=== PATIENT | male | born 1975 | race Caucasian/White ===

== ENCOUNTER 2017-08-05 16:43 | Emergency (ER) | payer MEDICAID ==
[2017-08-05 20:30] VITALS: BP 122/71
--- NOTE | 2017-08-05 21:14 | UC ---
FLU HPI - HPI Summary HPI Summary: 1 WEEK OF CHILLS, FATIGUE, MYALGIAS, BRYSON, INTERMITTENT NAUSEA, COUGH AND CONGESTION. HAD FEVER AT [facility] 101.1 BUT THERMOMETER BROKE 4 DAYS AGO SO HAS NOT CHECKED SINCE THEN. STILL FEELS UNWELL. DENIES SOB. NO FLU SHOT THIS SEASON. - History of Current Complaint Chief Complaint: UCGeneralIllness Stated Complaint: COUGH, ACHES Time Seen by Provider: 08/05/17 21:07 Hx Obtained From: Patient Onset/Duration: Gradual Onset, Lasting Days, Still Present Severity Currently: Moderate Severity Initially: Moderate Pain Intensity: 6 Pain Scale Used: 0-10 Numeric Associated Signs & Symptoms: Positive: Fever, Myalgia, Cough, Sore Throat, Nasal Congestion, Headache - Allergy/Home Medications Allergies/Adverse Reactions: Allergies Allergy/AdvReac Type Severity Reaction Status Date / Time No Known Allergies Allergy Verified 08/05/17 20:20 Home Medications: Home Medications Aspirin/Acetaminophen/Caffeine [Excedrin Migraine Caplet] 1 each PO DAILY PRN [History Confirmed 08/05/17] Ibuprofen/Pseudoephedrine HCl [Advil Cold & Sinus Caplet] 1 tab PO DAILY PRN [History Confirmed 08/05/17] PMH/Surg Hx/FS Hx/Imm Hx Neurological History: Migraine - Surgical History Surgical History: None - Family History Known Family History: Positive: Other - no skeletal disorders Negative: Hypertension - Social History Alcohol Use: None Substance Use Type: None Smoking Status (MU): Heavy Every Day Tobacco Smoker Type: Cigarettes Amount Used/How Often: 1/2 pack daily Length of Time of Smoking/Using Tobacco: 23 Years (quit for four years) Have You Smoked in the Last Year: Yes Household Exposure Type: Cigarettes - Immunization History Most Recent Influenza Vaccination: Fall 2014 Review of Systems Constitutional: Fever, Chills, Fatigue ENT: Sore Throat, Nasal Discharge Respiratory: Cough Cardiovascular: Negative Gastrointestinal: Nausea Musculoskeletal: Myalgia Neurological: Headache All Other Systems Reviewed And Are Negative: Yes Physical Exam Triage Information Reviewed: Yes Appearance: No Pain Distress, Well-Nourished, Ill-Appearing - MILD Vital Signs: Initial Vital Signs Temp 98.1 F 08/05/17 20:23 Pulse 71 08/05/17 20:23 Resp 16 08/05/17 20:23 BP 122/71 08/05/17 20:23 Pulse Ox 100 08/05/17 20:23 Vital Signs Reviewed: Yes Eyes: Positive: Conjunctiva Clear ENT: Positive: Hearing grossly normal, Pharynx normal, TMs normal - PARTIALLY OCCLUDED BY CERUMEN Neck: Positive: Supple, Nontender, No Lymphadenopathy Respiratory Exam: Normal Cardiovascular Exam: Normal Abdomen Description: Positive: Soft Musculoskeletal: Positive: No Edema Neurological: Positive: Alert Psychological: Positive: Age Appropriate Behavior Skin: Negative: rashes Diagnostics - Laboratory Diagnostic Studies Completed/Ordered: FLU NEG Flu Course/Dx - Course Course Of Treatment: DISCUSSED OBTAINING CXR GIVEN PT WITH PERSISTENT SX OF COUGH, SUBJECTIVE FEVER AND MALAISE. PT DECLINES DUE TO TIME CONSTRAINTS. STATES HE WILL F/U WITH PCP AND GET CXR AT LATER TIME IF INDICATED. - Differential Dx/Diagnosis Provider Diagnoses: ACUTE BRONCHITIS Discharge - Discharge Plan Condition: Stable Disposition: HOME Prescriptions: Albuterol HFA INHALER* [Ventolin HFA Inhaler*] 2 puff INH Q4H PRN #1 mdi PRN Reason: Shortness Of Breath Azithromycin 500 mg PO DAILY #4 tab Benzonatate CAP* [Tessalon CAP*] 1 - 2 cap PO TID PRN #30 cap PRN Reason: Cough predniSONE TAB* [Deltasone TAB*] 40 mg PO DAILY #10 tab Patient Education Materials: Acute Bronchitis (ED) Forms: *Work Release Referrals: No Primary Care Phys,NOPCP [Primary Care Provider] - Additional Instructions: FLU SWAB NEGATIVE. YOUR SYMPTOMS MAY BE VIRALLY MEDIATED BUT GIVEN THE LENGTH OF TIME YOU HAVE BEEN ILL WE WILL COVER YOU WITH ANTIBIOTICS. IF YOU START THE MEDICINE BE SURE TO TAKE IT FOR THE FULL COURSE. REST, HYDRATE, OTC MEDS NEEDED. WILL ALSO TREAT WITH PREDNISONE TO HELP WITH AIRWAY INFLAMMATION AND COUGH MEDICINE. ALBUTEROL REFILLED. SEEK FOLLOW-UP HERE OR WITH YOUR PCP IF YOU ARE NOT IMPROVING OVER THE NEXT 1-2 WEEKS. CALL THE NUMBER BELOW FOR ASSISTANCE IN ESTABLISHING WITH A PCP An additional resource available to assist in finding the appropriate physician for your health care needs is [facility] ([facility]). You may contact them by calling [phone].
[2017-08-05] MEDS ORDERED: Azithromycin TAB* 250 MG PO ONE (21:51)
== END 2017-08-05 22:05 | disposition home or self-care (01) ==
LOC: UCCORT 16:43
DX: J20.9 Acute bronchitis, unspecified (principal); F17.210 Nicotine dependence, cigarettes, uncomplicated
CPT/HCPCS: 87502; 99212; A9270-GY; G0463

== ENCOUNTER 2018-04-19 08:09 | Emergency (ER) | payer OTHER ==
[2018-04-19 08:35] VITALS: BP 123/77
[2018-04-19] MEDS ORDERED: Ketorolac INJ* 60 MG/2 ML VIAL IM ONE (08:46)
--- NOTE | 2018-04-19 09:00 | ED ---
Back Pain - HPI Summary HPI Summary: 42 yo WM p/w sudden lumbar back pain after lifting a tire to a car at work. Denies fall, trauma but pain is 9-10/10 and disabling associated with radiation to B/L legs, w/o numbness or tingling. - History of Current Complaint Chief Complaint: UCBackPain Stated Complaint: LOWER BACK PAIN Time Seen by Provider: 04/19/18 08:45 Hx Obtained From: Patient Onset/Duration: Sudden Onset, Lasting Days, Still Present Onset/Duration: Started Hours Ago Timing: Constant Severity Initially: Severe Severity Currently: Moderate Pain Intensity: 7 - Allergies/Home Medications Allergies/Adverse Reactions: Allergies Allergy/AdvReac Type Severity Reaction Status Date / Time No Known Allergies Allergy Verified 04/19/18 08:31 PMH/Surg Hx/FS Hx/Imm Hx Respiratory History: Reports: Hx Asthma Infectious Disease History: No Infectious Disease History: Denies: Traveled Outside the [place] in Last 30 Days - Family History Known Family History: Positive: Other - no skeletal disorders Negative: Hypertension - Social History Alcohol Use: None Substance Use Type: Reports: None Smoking Status (MU): Heavy Every Day Tobacco Smoker Type: Cigarettes Amount Used/How Often: 1/2 pack daily Length of Time of Smoking/Using Tobacco: 23 Years (quit for four years) Have You Smoked in the Last Year: Yes Review of Systems Constitutional: Negative Eyes: Negative ENT: Negative Cardiovascular: Negative Respiratory: Negative Gastrointestinal: Negative Positive: Myalgia, Other - LBP Skin: Negative Positive: Paresthesia Psychological: Normal All Other Systems Reviewed And Are Negative: Yes Physical Exam - Summary Physical Exam Summary: Vital Signs Reviewed: Yes Appearance: Positive: Well-Appearing Skin: Positive: Warm Head/Face: Positive: Normal Head/Face Inspection Eyes: Positive: Normal, EOMI, GAIL ENT: Positive: Normal ENT inspection Neck: Positive: Supple Respiratory/Lung Sounds: Positive: Clear to Auscultation Cardiovascular: Positive: Normal, RRR, S1, S2 Abdomen Description: Positive: Nontender, Soft Musculoskeletal: Positive: lumbar L2-3 paraspinal tenderness, ROM restricted 2ndary to pain Neurological: Positive: CN Intact II-XII Psychiatric: Positive: Normal Vital Signs On Initial Exam: Initial Vitals Temp Pulse Resp BP Pulse Ox 36.7 C 71 15 123/77 100 04/19/18 08:27 04/19/18 08:27 04/19/18 08:27 04/19/18 08:27 04/19/18 08:27 Vital Signs Reviewed: Yes Diagnostics - Vital Signs Vital Signs Temp Pulse Resp BP Pulse Ox 04/19/18 08:27 36.7 C 71 15 123/77 100 - Laboratory Lab Statement: Any lab studies that have been ordered have been reviewed, and results considered in the medical decision making process. Back Pain Course/Dx - Course Course Of Treatment: Torasol 60mg In x 1 dose administered with mild improvement - Diagnoses Provider Diagnoses: Acute bilateral low back pain with bilateral sciatica, Spasm Discharge - Sign-Out/Discharge Documenting (check all that apply): Patient Departure All imaging exams completed and their final reports reviewed: Yes - Discharge Plan Condition: Stable Disposition: HOME Prescriptions: Cyclobenzaprine TAB* [Flexeril 10 MG TAB*] 10 mg PO BID PRN 5 Days #10 tab PRN Reason: Pain Naproxen [Naproxen 500 mg tab] 500 mg PO BID 10 Days #20 tablet. Patient Education Materials: Muscle Spasm (ED), Low Back Strain (ED) Forms: *Work Release Additional Instructions: as tolerated - Billing Disposition and Condition Condition: STABLE Disposition: Home
== END 2018-04-19 09:19 | disposition home or self-care (01) ==
LOC: UCCORT 08:09
DX: M54.42 Lumbago with sciatica, left side (principal); M54.41 Lumbago with sciatica, right side; M62.830 Muscle spasm of back; Z87.891 Personal history of nicotine dependence
CPT/HCPCS: 96372; 99212; G0463; J1885

== ENCOUNTER 2018-04-27 14:15 | Emergency (ER) | payer OTHER ==
[2018-04-27 14:26] VITALS: BP 139/86
--- NOTE | 2018-04-27 14:46 | UC ---
Back Pain HPI - HPI Summary HPI Summary: 42 year old male presents with persistent low back pain. Was initially seen at this facility on 04/19/2018 with onset of low back pain after lifting a tire at work. States he has been taking naproxen and cyclobenzabrine as prescribed with some improvement in symptoms. Reports constant low back pain that occasionally shoots down both legs to his knee. Radiating pain most often occurs on the right side however occasionally occurs on the left. Pain worse with sitting, bending, and walking. Improves with lying on his left side, warm moist heat, and gentle massage. States he has been unable to return to work d/t the pain. Denies fever, chills, abdominal pain, nausea, vomiting, weakness, numbness, tingling in extremities, or loss of bowel or bladder control. - History of Current Complaint Chief Complaint: UCBackPain Stated Complaint: LOWER BACK PAIN Time Seen by Provider: 04/27/18 14:22 Hx Obtained From: Patient Onset/Duration: Sudden Onset, Lasting Days Timing: Constant Severity Initially: Moderate Severity Currently: Moderate Pain Intensity: 6 Back Pain: Radiates To - bilateral legs Character: Sharp, Spasmodic Aggravating Factor(s): Movement, Bending, Walking Alleviating Factor(s): Rest, Position, Heat Associated Signs And Symptoms: Negative: Fever, Weakness, Numbness, Tingling, Abdominal Pain, Flank Pain, Bladder Incontinence, Bowel Incontinence - Allergies/Home Medications Allergies/Adverse Reactions: Allergies Allergy/AdvReac Type Severity Reaction Status Date / Time No Known Allergies Allergy Verified 04/19/18 08:31 PMH/Surg Hx/FS Hx/Imm Hx Respiratory History: Asthma - Surgical History Surgical History: None - Family History Family History: Noncontributory - Social History Occupation: Employed Full-time Lives: With Family Alcohol Use: None Substance Use Type: None Smoking Status (MU): Heavy Every Day Tobacco Smoker Type: Cigarettes Amount Used/How Often: 1/2 pack daily Length of Time of Smoking/Using Tobacco: 23 Years (quit for four years) Have You Smoked in the Last Year: Yes Household Exposure Type: Cigarettes - Immunization History Most Recent Influenza Vaccination: Fall 2014 Review of Systems All Other Systems Reviewed And Are Negative: Yes Constitutional: Positive: Negative Skin: Positive: Negative Gastrointestinal: Positive: Negative Genitourinary: Positive: Negative Motor: Positive: Negative Neurovascular: Positive: Negative Musculoskeletal: Positive: Other: - See HPI Is Patient Immunocompromised?: No Physical Exam Triage Information Reviewed: Yes Appearance: No Pain Distress, Well-Nourished Vital Signs: Initial Vital Signs Temp 98.2 F 04/27/18 14:22 Pulse 74 04/27/18 14:22 Resp 16 04/27/18 14:22 BP 139/86 04/27/18 14:22 Pulse Ox 98 04/27/18 14:22 Neck: Positive: Supple, Nontender Respiratory: Positive: Lungs clear, Normal breath sounds, No respiratory distress Cardiovascular: Positive: RRR, No Murmur, Pulses Normal, Brisk Capillary Refill Abdomen Description: Positive: Nontender, No Organomegaly, Soft. Negative: CVA Tenderness (R), CVA Tenderness (L), Distended, Guarding Bowel Sounds: Positive: Present Musculoskeletal: Positive: Strength Intact, Other: - Mild soft tissue tenderness to bilateral lumbar back without spasm. No midline spinal tenderness or deformities noted. Neurological: Positive: Alert, Muscle Tone Normal, Other: - Sensation intact distally Skin Exam: Normal Back Pain Course/Dx - Course Course Of Treatment: 42 year old male with persistent low back pain after lifting a tire at work 04/19/2018. He was initially evalauted at this facility and recommended conservative treatment for low back strain. He states pain has improved however has not been able to work as pain has persisted. Afebrile. Neuro intact. Exam revealed bilateral soft tissue tenderness. Recommend continued conservative treatment NSAIDs, muscle relaxant, heat, and low back exercises. A prescription for PT evaluation and treatment was provided. He is to follow up with occupational medicine within 7 days for re-evaluation. Warning symptoms reviewed. Verbalizes understanding and agrees with POC. - Differential Dx/Diagnosis Differential Diagnosis/HQI/PQRI: Arthritis, Herniated Disc, Strain Provider Diagnoses: low back strain, elevated blood pressure reading Discharge - Sign-Out/Discharge Documenting (check all that apply): Patient Departure All imaging exams completed and their final reports reviewed: No Studies - Discharge Plan Condition: Stable Disposition: HOME Prescriptions: Cyclobenzaprine HCl 10 mg PO Q8HR PRN #15 tablet PRN Reason: Spasms Naproxen [Naproxen 500 mg tab] 500 mg PO Q12HR #30 tablet Patient Education Materials: Low Back Strain (ED), Lower Back Exercises (ED) Forms: *Work Release Referrals: No Primary Care Phys,NOPCP [Primary Care Provider] - Matt Felix MD [Medical Doctor] - 7 Days (Call for appointment.) Additional Instructions: Continue taking the naproxen 1 tab every 12 hours with food. Use cyclobenzaprine 1 tab every 8 hours as needed for severe pain or spasm. Use warm, moist heat to the affected area 3-4 times a day. I have provided you with a referral to physical therapy for evaluation and treatment. Follow up with Dr. Felix, occupational medicine, within 7 days for re- evaluation. Call for an appointment. Your blood pressure was slightly elevated in the clinic today. It is recommended that you follow up with a primary care provider to have this rechecked. Seek immediate medical attention in the emergency room if you develop fever greater than 100.5 F, have weakness, numbness, or tingling in the legs, you lose control of your bowel or bladder, or have any worsening of symptoms. - Billing Disposition and Condition Condition: STABLE Disposition: Home
== END 2018-04-27 15:09 | disposition home or self-care (01) ==
LOC: UCCORT 14:15
DX: Z51.89 Encounter for other specified aftercare (principal); S39.012D Strain of muscle, fascia and tendon of lower back, subsequent encounter; X50.0XXD Overexertion from strenuous movement or load, subsequent encounter; R03.0 Elevated blood-pressure reading, without diagnosis of hypertension; F17.210 Nicotine dependence, cigarettes, uncomplicated
CPT/HCPCS: 99212; G0463

== ENCOUNTER 2019-04-27 18:13 | Emergency (ER) | payer MEDICAID, OTHER ==
[2019-04-27 18:24] VITALS: BP 134/83
[2019-04-27] MEDS ORDERED: Albuterol HFA INHALER* 8 gm MDI INH ONE (18:52)
--- NOTE | 2019-04-27 18:58 | UC ---
Respiratory Complaint HPI - HPI Summary HPI Summary: 43 yo male got ill 4-5 days ago fever/chills/congestion/cough and wheezing no fever/chills hx asthma and has used his rescue inhaler fells much better now and desires not to return to work - History of Current Complaint Chief Complaint: UCRespiratory Stated Complaint: FLU SYMPTOMS Time Seen by Provider: 04/27/19 18:48 Hx Obtained From: Patient Onset/Duration: Gradual Onset Timing: Constant Severity Initially: Moderate Severity Currently: Mild Pain Intensity: 0 Pain Scale Used: 0-10 Numeric Character: Cough: Nonproductive Aggravating Factors: Nothing Associated Signs And Symptoms: Positive: Fever - now resolved, Chills - now resolved, Wheezing, Nasal Congestion - now resolved - Allergies/Home Medications Allergies/Adverse Reactions: Allergies Allergy/AdvReac Type Severity Reaction Status Date / Time No Known Allergies Allergy Verified 04/27/19 18:21 PMH/Surg Hx/FS Hx/Imm Hx Previously Healthy: Yes Respiratory History: Asthma, Bronchitis - Surgical History Surgical History: None - Family History Known Family History: Positive: Other - no skeletal disorders Negative: Hypertension Family History: Noncontributory - Social History Alcohol Use: Rare Substance Use Type: None Smoking Status (MU): Heavy Every Day Tobacco Smoker Type: Cigarettes Amount Used/How Often: 1/2 pack daily Length of Time of Smoking/Using Tobacco: 23 Years (quit for four years) Have You Smoked in the Last Year: Yes Household Exposure Type: Cigarettes - Immunization History Most Recent Influenza Vaccination: Fall 2014 Review of Systems All Other Systems Reviewed And Are Negative: Yes Constitutional: Positive: Fever - resolved >24 hours, Chills - resolved >24 hours, Fatigue Skin: Positive: Negative Eyes: Positive: Negative ENT: Positive: Negative Respiratory: Positive: Cough, Other - wheezing has decreased Cardiovascular: Positive: Negative Gastrointestinal: Positive: Negative Genitourinary: Positive: Negative Motor: Positive: Negative Neurovascular: Positive: Negative Musculoskeletal: Positive: Negative Neurological: Positive: Negative Psychological: Positive: Negative Physical Exam Triage Information Reviewed: Yes Appearance: Well-Appearing, No Pain Distress, Well-Nourished Vital Signs: Initial Vital Signs Temp 97.9 F 04/27/19 18:22 Pulse 80 04/27/19 18:22 Resp 18 04/27/19 18:22 BP 134/83 11/10/19 18:22 Pulse Ox 99 04/27/19 18:22 Vital Signs Reviewed: Yes Eyes: Positive: Conjunctiva Clear ENT: Positive: Nasal congestion, Uvula midline. Negative: Hearing grossly normal, Pharyngeal erythema, Nasal drainage, Muffled voice, Hoarse voice Neck: Positive: Supple, Nontender, No Lymphadenopathy Respiratory: Positive: No respiratory distress, No accessory muscle use, Wheezing Cardiovascular: Positive: RRR, No Murmur Musculoskeletal: Positive: ROM Intact, No Edema Neurological: Positive: Alert Psychological Exam: Normal Skin Exam: Normal Respiratory Course/Dx - Differential Dx/Diagnosis Provider Diagnosis: Influenza-like illness, Elevated BP without diagnosis of hypertension Discharge ED - Sign-Out/Discharge Documenting (check all that apply): Patient Departure All imaging exams completed and their final reports reviewed: No Studies - Discharge Plan Condition: Stable Disposition: HOME Patient Education Materials: How to Use a Metered-Dose Inhaler (ED) Forms: *Work Release Referrals: [facility] [Outside] - If Needed Additional Instructions: use inhaler as directed recheck for new or worsening symptoms or if not completely better in 4-5 days BP is in pre-hypertensive range and should be followed up in 1-4 mos - Billing Disposition and Condition Condition: STABLE Disposition: Home
== END 2019-04-27 19:09 | disposition home or self-care (01) ==
LOC: UCCORT 18:13
DX: R50.9 Fever, unspecified (principal); R05 Cough; R09.89 Other specified symptoms and signs involving the circulatory and respiratory systems; R03.0 Elevated blood-pressure reading, without diagnosis of hypertension; R53.83 Other fatigue; J45.909 Unspecified asthma, uncomplicated; F17.210 Nicotine dependence, cigarettes, uncomplicated
CPT/HCPCS: 99212; A9270-GY; G0463

== ENCOUNTER 2019-07-23 07:56 | Emergency (ER) | payer MEDICAID, OTHER ==
[2019-07-23 08:10] VITALS: BP 130/82
--- NOTE | 2019-07-23 08:42 | UC ---
Back Pain HPI - HPI Summary HPI Summary: right lower back pain x 2 days pain is severe , 9 out 10 , constant pain is radiating to his right leg, better by lying on his stomach , worse with any movement. + numbness of his right lower ext. no urinary sx, hx of chronic back pain , injury to his lower back 2 years ago been having pain off and on since - History of Current Complaint Chief Complaint: UCBackPain Stated Complaint: LOWERBACK/RTLEG Time Seen by Provider: 07/23/19 08:06 Hx Obtained From: Patient Onset/Duration: Gradual Onset, Lasting Days - 2, Still Present Timing: Constant Severity Initially: Severe Severity Currently: Severe Pain Intensity: 9 Back Pain: Is Discrete @ - right lower back Character: Spasmodic Aggravating Factor(s): Movement, Lifting, Bending, Walking, Cough Alleviating Factor(s): Rest, Position Associated Signs And Symptoms: Positive: Weakness - right lower leg, Numbness - right lower leg, Tingling - right lower leg. Negative: Swelling, Redness, Bruising, Fever, Abdominal Pain, Flank Pain, Bladder Incontinence, Bowel Incontinence, Weight Loss, Pain with Weight Bearing - Allergies/Home Medications Allergies/Adverse Reactions: Allergies Allergy/AdvReac Type Severity Reaction Status Date / Time No Known Allergies Allergy Verified 07/23/19 08:07 PMH/Surg Hx/FS Hx/Imm Hx - Additional Past Medical History Additional PMH: chronic back pain Respiratory History: Asthma - Surgical History Surgical History: None - Family History Known Family History: Positive: Other - no skeletal disorders Negative: Hypertension Family History: Noncontributory - Social History Alcohol Use: Rare Substance Use Type: None Smoking Status (MU): Heavy Every Day Tobacco Smoker Type: Cigarettes Amount Used/How Often: 1/2 pack daily Length of Time of Smoking/Using Tobacco: 23 Years (quit for four years) Have You Smoked in the Last Year: Yes Household Exposure Type: Cigarettes - Immunization History Most Recent Influenza Vaccination: Fall 2014 Review of Systems All Other Systems Reviewed And Are Negative: Yes Constitutional: Positive: Negative Skin: Positive: Negative Eyes: Positive: Negative ENT: Positive: Negative Is Patient Immunocompromised?: No Physical Exam Triage Information Reviewed: Yes Appearance: Well-Nourished, Pain Distress Vital Signs: Initial Vital Signs Temp 97.7 F 07/23/19 08:04 Pulse 61 07/23/19 08:04 Resp 17 07/23/19 08:04 BP 130/82 07/23/19 08:04 Pulse Ox 100 07/23/19 08:04 Vital Signs Reviewed: Yes Eye Exam: Normal Eyes: Positive: Conjunctiva Clear ENT: Positive: Normal ENT inspection, Hearing grossly normal, Pharynx normal Neck: Positive: Supple, Nontender, No Lymphadenopathy Respiratory: Positive: Chest non-tender, Lungs clear, Normal breath sounds Cardiovascular: Positive: RRR, No Murmur, Pulses Normal Abdomen Description: Positive: Nontender, Soft. Negative: CVA Tenderness (R), CVA Tenderness (L), Distended, Guarding Bowel Sounds: Positive: Present Musculoskeletal: Positive: Strength Limited @, ROM Limited @, Other: - lower back : + diffuse tenderness of right lower back , limited ROM on flexion and extension . limited Strength of right lower leg due to pain , normal lower ext. DTR Diagnostics - Radiology No standard instances Radiology Interpretation Completed By: Radiologist Summary of Radiographic Findings: LS spine xray report : IMPRESSION: Mild degenerative disc disease at L4-L5 and L5-S1. Back Pain Course/Dx - Differential Dx/Diagnosis Provider Diagnosis: Pain of back and right lower extremity Discharge ED - Sign-Out/Discharge Documenting (check all that apply): Patient Departure All imaging exams completed and their final reports reviewed: Yes - Discharge Plan Condition: Stable Disposition: HOME Prescriptions: Cyclobenzaprine TAB* [Flexeril 10 MG TAB*] 10 mg PO BID PRN #20 tab PRN Reason: Pain - Moderate Naproxen [Naproxen 500 mg tab] 500 mg PO BID #20 tablet predniSONE 20 mg TAB [Deltasone 20 MG TAB*] 40 mg PO DAILY #10 tab Patient Education Materials: Sciatica (ED), Acute Low Back Pain (ED) Referrals: [facility] [Outside] - 7 Days No Primary Care Phys,NOPCP [Primary Care Provider] - 7 Days - Billing Disposition and Condition Condition: STABLE Disposition: Home
== END 2019-07-23 09:21 | disposition home or self-care (01) ==
LOC: UCCORT 07:56
DX: M54.5 Low back pain (principal); M79.604 Pain in right leg; F17.210 Nicotine dependence, cigarettes, uncomplicated; J45.909 Unspecified asthma, uncomplicated; M51.36 Other intervertebral disc degeneration, lumbar region; M51.37 Other intervertebral disc degeneration, lumbosacral region
CPT/HCPCS: 72110; 99212; G0463

== ENCOUNTER 2019-08-28 13:12 | Emergency (ER) | payer OTHER ==
[2019-08-28 14:24] VITALS: BP 129/82
[2019-08-28] MEDS ORDERED: Ketorolac INJ* 30 MG/ML 1 ML VIAL IM ONE (16:10)
--- NOTE | 2019-08-28 16:11 | UC ---
Back Pain HPI - HPI Summary HPI Summary: 43 yo male with waxing and waning right sciatica since work related injury 17 mos ago has not seen Dr. Felix for a long time has been our of work since 08/17 with severe right sciatica no bowel or bladder dysfunction - History of Current Complaint Chief Complaint: UCBackPain Stated Complaint: LOW BACK/RT LEG PAIN Time Seen by Provider: 08/28/19 15:56 Hx Obtained From: Patient Onset/Duration: Sudden Onset, Worse Since - 08/17 Timing: Constant Severity Initially: Severe Severity Currently: Severe Pain Intensity: 8 Pain Scale Used: 0-10 Numeric Back Pain: Is Discrete @, Radiates To - right lateral leg to lat foot Character: Burning Aggravating Factor(s): Movement, Lifting, Bending Alleviating Factor(s): Other - medications Related History: Occupational Injury Full Body (No Head): 1 - pain 2 - radiation - Allergies/Home Medications Allergies/Adverse Reactions: Allergies Allergy/AdvReac Type Severity Reaction Status Date / Time No Known Allergies Allergy Verified 08/28/19 14:24 Home Medications: Home Medications Cyclobenzaprine TAB* [Flexeril TAB*] 10 mg PO TID PRN #21 tab 08/28/19 [Rx] Naproxen [Naproxen 500 mg tab] 500 mg PO BID PRN #20 tablet 08/28/19 [Rx] methylPREDNISolone [Medrol] 4 mg PO DAILY #1 tab.ds.pk 08/28/19 [Rx] PMH/Surg Hx/FS Hx/Imm Hx Previously Healthy: Yes Respiratory History: Asthma - Surgical History Surgical History: None - Family History Known Family History: Positive: Other - no skeletal disorders Negative: Hypertension Family History: Noncontributory - Social History Alcohol Use: Rare Substance Use Type: None Smoking Status (MU): Heavy Every Day Tobacco Smoker Type: Cigarettes Amount Used/How Often: 1/2 pack daily Length of Time of Smoking/Using Tobacco: 23 Years (quit for four years) Have You Smoked in the Last Year: Yes Household Exposure Type: Cigarettes - Immunization History Most Recent Influenza Vaccination: Fall 2014 Review of Systems All Other Systems Reviewed And Are Negative: Yes Constitutional: Positive: Negative Skin: Positive: Negative Eyes: Positive: Negative ENT: Positive: Negative Respiratory: Positive: Negative Cardiovascular: Positive: Negative Gastrointestinal: Positive: Negative Genitourinary: Positive: Negative Motor: Positive: Negative Neurovascular: Positive: Negative Musculoskeletal: Positive: Other: - see HPI Neurological/Mental Status: Positive: Negative Psychological: Positive: Negative Physical Exam Triage Information Reviewed: Yes Appearance: Well-Appearing, No Pain Distress, Well-Nourished Vital Signs: Initial Vital Signs Temp 99.2 F 08/28/19 14:14 Pulse 59 08/28/19 14:14 Resp 18 08/28/19 14:14 BP 129/82 08/28/19 14:14 Pulse Ox 100 08/28/19 14:14 Vital Signs Reviewed: Yes Eyes: Positive: Conjunctiva Clear ENT: Positive: Hearing grossly normal, Uvula midline. Negative: Nasal congestion, Nasal drainage, Tonsillar swelling, Tonsillar exudate, Trismus, Muffled voice, Hoarse voice Dental Exam: Normal Neck: Positive: Supple, Nontender, No Lymphadenopathy Respiratory: Positive: Lungs clear, Normal breath sounds, No respiratory distress, No accessory muscle use Cardiovascular: Positive: RRR, No Murmur Musculoskeletal: Positive: No Edema Neurological: Positive: Alert Psychological Exam: Normal Skin Exam: Normal - Additional Comments back- limited ROM slow wide based gait + right SLR ++ knee jerk + ankle jerk Back Pain Course/Dx - Differential Dx/Diagnosis Provider Diagnosis: Right sided sciatica Discharge ED - Sign-Out/Discharge Documenting (check all that apply): Patient Departure All imaging exams completed and their final reports reviewed: No Studies - Discharge Plan Condition: Stable Disposition: HOME Prescriptions: Cyclobenzaprine TAB* [Flexeril TAB*] 10 mg PO TID PRN #21 tab PRN Reason: Spasms methylPREDNISolone [Medrol] 4 mg PO DAILY #1 tab.ds.pk Naproxen [Naproxen 500 mg tab] 500 mg PO BID PRN #20 tablet PRN Reason: Pain Patient Education Materials: Sciatica (ED) Forms: *Work Release Referrals: Matt Felix MD [Medical Doctor] - - Billing Disposition and Condition Condition: STABLE Disposition: Home
== END 2019-08-28 16:21 | disposition home or self-care (01) ==
LOC: UCCORT 13:12
DX: M54.31 Sciatica, right side (principal); J45.909 Unspecified asthma, uncomplicated; F17.210 Nicotine dependence, cigarettes, uncomplicated; Z79.899 Other long term (current) drug therapy
CPT/HCPCS: 96372; 99212; G0463; J1885